=== PATIENT | male | born 2000 | race Caucasian/White ===

== ENCOUNTER 2021-05-04 16:21 | Emergency (ER) | payer OTHER ==
[~2021-05-04 16:21] MED LIST: ADVAIR 250-501 EACH IH; IBUPROFEN600 MG PO; PREDNISONE 20 M20 MG PO; PREDNISONE10 MG PO; SINGULAIR10 MG PO; VENTOLIN HFA8 GM PO; VENTOLIN/PROVE0.5 ML INH; ZYRTEC10 MG PO
[2021-05-04] MEDS ORDERED: BACTROBAN OINT22 GM EXT (19:32)
[2021-05-04] MEDS ORDERED: IBUPROFEN600 MG PO (19:32)
== END 2021-05-04 19:43 | disposition home or self-care (01) ==
LOC: ER1 16:21
DX: S63.501A Unspecified sprain of right wrist, initial encounter (principal); S20.411A Abrasion of right back wall of thorax, initial encounter; S40.212A Abrasion of left shoulder, initial encounter; J45.909 Unspecified asthma, uncomplicated; F17.290 Nicotine dependence, other tobacco product, uncomplicated; V29.60XA Unspecified motorcycle rider injured in collision with unspecified motor vehicles in traffic accident, initial encounter
CPT/HCPCS: 73090; 73110; 73130; 99283